=== PATIENT | female | born 1985 | race Caucasian/White ===

== ENCOUNTER 2017-06-10 13:56 | Outpatient (CLI) | payer OTHER ==
--- NOTE | 2017-06-11 14:46 | OP Clinic Progress Note ---
REASON FOR VISIT: This 31-year-old lady is seen with itchy ears that have persisted for overlying at least this year. The right side is bothersome more than the left. She has used hydrogen peroxide and she has also used sweet oil. It gets a little dry and itchy in the area of the meatuses. The hearing is normal. Microscopic otoscopy notes bilaterally fairly normal eardrums. The right ear more than left has a very mild inflammatory response. There is not really significant edema. There is more erythema. There is a slight exudate of the right ear and almost nil in the left ear. PLAN: It is difficult to tell whether it is a fungal or a bacterial etiology of this. Giving some consideration to the different types of topicals that could be used for the ear canals, I think the simplest and potentially very effective would be using alcohol drops initially 3 times a week and tend to use isopropyl alcohol 91%. I described instillation of this with Analilia. If it seems to be somewhat effective over the next 1 to 2 months, she might drop the process back to twice a week and then once a week over the next several months. The exact diagnosis is a little difficult to state at this point in time. OTTO
== END 2017-06-10 13:57 ==
LOC: ENT 13:56
PROVIDERS: ATTEND Otolaryngology
DX: L53.9 Erythematous condition, unspecified (principal)
CPT/HCPCS: 99203